=== PATIENT | male | born 1955 | race African-American/Black ===

== ENCOUNTER 2022-11-06 07:01 | Observation (INO) | payer OTHER ==
[~2022-11-06] VITALS: Ht 160 cm; Wt 81.7 kg
[~2022-11-06 07:01] MED LIST: AEC81 PO; ATOR40TA69 PO; CARV25TA PO; DIPH50CA37 PO; DULO60CA64 PO; HYDR25TA PO; ISOS30TA92 PO; NITR0.4T50 SL
[2022-11-06 07:39] LABS: BASOPHILS % (AUTO) 0.3 % (0.0-5.0); EOSINOPHILS % (AUTO) 4.4 % (0.0-8.0); HEMATOCRIT 41.6 % (42-54); LYMPHOCYTES % (AUTO) 36.8 % (21.0-51.0); MEAN CORPUSCULAR HEMOGLOBIN 30.9 pg (27.0-33.0); MEAN CORPUSCULAR HGB CONC 34.9 g/dL (32.0-36.0); MEAN CORPUSCULAR VOLUME 88.5 fL (79-99); MONOCYTES % (AUTO) 13.1 % (3.0-13.0); NEUTROPHILS % (AUTO) 45.1 % (40.0-77.0); PLATELET COUNT (AUTO) 189 K/uL (130-400); RED CELL DISTRIBUTION WIDTH 12.2 % (11.0-15.5); WHITE BLOOD COUNT (AUTO) 3.8 K/uL (4.8-10.8)
[2022-11-06] MEDS ORDERED: ALBUTEROL 0.083% 2.5 MG/3 ML INH IH ONE (08:00)
[2022-11-06] MEDS ORDERED: MORPHINE 4 MG SYG IVP ONE (08:00)
[2022-11-06] MEDS ORDERED: ENOXAPARIN SODIUM 80 MG/0.8 ML SQ ONE (08:00)
[2022-11-06] MEDS ORDERED: NITROGLYCERIN 1GM OINT 1 INCH/1GM TD ONE (08:00)
[2022-11-06 08:22] LABS: ALBUMIN 3.8 g/dL (3.5-5.0); CREATININE 1.2 mg/dL (0.5-1.5); POTASSIUM 4.1 mmol/L (3.5-5.1); TOTAL PROTEIN, SERUM 7.7 g/dL (6.0-8.3)
[2022-11-06 08:31] LABS: MAGNESIUM 1.5 mg/dL (1.80-2.40)
[2022-11-06] MEDS ORDERED: MAGNESIUM 2GM PREMIX 50ML 50 ML IV SCH (09:00)
[2022-11-06] MEDS ORDERED: HYDRALAZINE 25MG TABLET PO PRN (12:00)
[2022-11-06] MEDS ORDERED: DiphenhydrAMINE HCL 50 MG/ML VIAL IV PRN (12:00)
[2022-11-06] MEDS ORDERED: ARTIFICAL TEARS SOL 15 ML OP PRN (12:00)
[2022-11-06] MEDS ORDERED: POLYETHYLENE GLYCOL 3350 17 GM POWD.PACK PO PRN (12:00)
[2022-11-06] MEDS ORDERED: GUAIFENESIN SUGAR-FREE 100 MG/5 ML UDCUP PO PRN (12:00)
[2022-11-06] MEDS ORDERED: ALPRAZOLAM 0.5 MG TABLET PO PRN (12:00)
[2022-11-06] MEDS ORDERED: DOCUSATE SODIUM 100 MG CAP PO PRN (12:00)
[2022-11-06] MEDS ORDERED: LOPERAMIDE HCL 2 MG CAP PO PRN (12:00)
[2022-11-06] MEDS ORDERED: ACETAMINOPHEN 325 MG TAB PO PRN (12:00)
[2022-11-06] MEDS ORDERED: DIPHENHYDRAMINE HCL 25 MG CAPSULE PO PRN (12:00)
[2022-11-06] MEDS ORDERED: ALBUTEROL 0.083% 2.5 MG/3 ML INH IH PRN (12:00)
[2022-11-06] MEDS ORDERED: POTASSIUM CHLORIDE 20MEQ/100ML 100 ML IV PRN ×2 (12:30)
[2022-11-06] MEDS ORDERED: KCL 20 MEQ ERTAB PO PRN (12:30)
[2022-11-06] MEDS ORDERED: POTASSIUM CHLORIDE 10% ELIXIR 20 MEQ/15 ML UDCUP PO PRN (12:30)
[2022-11-06] MEDS ORDERED: MAGNESIUM 2GM PREMIX 50ML 50 ML IV PRN (12:30)
[2022-11-06] MEDS: MORPHINE 2 MG SYG IVP PRN ×3 (13:47→23:25)
[2022-11-06] MEDS: SOLU-MEDROL 40MG VIAL IVP SCH ×2 (15:24→20:49)
[2022-11-06] MEDS: CLOPIDOGREL 75MG TAB PO SCH (15:24)
[2022-11-06] MEDS ORDERED: IOHEXOL 350 MG/ML 100ML INFUS..BTL IV ONE (16:39)
[2022-11-06 18:24] VITALS: BP 128/79
[2022-11-06] MEDS: IPRATROPIUM/ALBUTEROL SULFATE 3 ML SOLUTION IH SCH (18:37)
[2022-11-06] MEDS: BUDESONIDE 0.5 MG/2 ML INH IH SCH (18:37)
[2022-11-06 19:00] VITALS: BP 145/87
[2022-11-06] MEDS: CARVEDILOL 25 MG TABLET PO SCH (20:28)
[2022-11-06] MEDS ORDERED: FAMOTIDINE 20MG VIAL IV SCH (21:00)
[2022-11-06] MEDS ORDERED: ATORVASTATIN 40 MG TABLET PO SCH (21:00)
[2022-11-06] MEDS ORDERED: ISOSORBIDE MONO 30MG SR TAB PO SCH (21:00)
[2022-11-06 23:00] VITALS: BP 110/81
[2022-11-06 23:34] LABS: AMPHET/METH SCREEN,URINE NEGATIVE (NEGATIVE); BARBITURATE SCREEN, URINE NEGATIVE (NEGATIVE); BENZODIAZEPINES SCREEN,URINE NEGATIVE (NEGATIVE); CANNABINOID SCREEN,URINE NEGATIVE (NEGATIVE); COCAINE SCREEN,URINE NEGATIVE (NEGATIVE); OPIATE SCREEN,URINE POSITIVE (NEGATIVE); PHENCYCLIDINE SCREEN,URINE NEGATIVE (NEGATIVE)
[2022-11-07] MEDS: IPRATROPIUM/ALBUTEROL SULFATE 3 ML SOLUTION IH SCH ×3 (01:43→11:14)
[2022-11-07] MEDS: SOLU-MEDROL 40MG VIAL IVP SCH ×3 (02:35→15:07)
[2022-11-07] MEDS: MORPHINE 2 MG SYG IVP PRN ×3 (04:28→13:43)
[2022-11-07 05:00] VITALS: BP 126/84
[2022-11-07 05:02] LABS: HEMATOCRIT 38.7 % (42-54); LYMPHOCYTES % (AUTO) 26.7 % (21.0-51.0); MEAN CORPUSCULAR HGB CONC 34.6 g/dL (32.0-36.0); MEAN CORPUSCULAR VOLUME 89.6 fL (79-99); MONOCYTES % (AUTO) 1.4 % (3.0-13.0); NEUTROPHILS % (AUTO) 71.4 % (40.0-77.0); PLATELET COUNT (AUTO) 198 K/uL (130-400); RED BLOOD CELL COUNT(AUTO) 4.32 MIL/uL (4.50-6.20); RED CELL DISTRIBUTION WIDTH 12.2 % (11.0-15.5); WHITE BLOOD COUNT (AUTO) 3.7 K/uL (4.8-10.8)
[2022-11-07 05:33] LABS: ALBUMIN 3.7 g/dL (3.5-5.0); CREATININE 1.5 mg/dL (0.5-1.5); MAGNESIUM 1.6 mg/dL (1.80-2.40); POTASSIUM 4.7 mmol/L (3.5-5.1); THYROID STIMULATING HORMONE 0.39 uIU/mL (0.36-3.74); TOTAL PROTEIN, SERUM 7.7 g/dL (6.0-8.3)
[2022-11-07] MEDS: BUDESONIDE 0.5 MG/2 ML INH IH SCH (07:00)
[2022-11-07 08:00] VITALS: BP 137/81
[2022-11-07] MEDS: CLOPIDOGREL 75MG TAB PO SCH (08:12)
[2022-11-07] MEDS: CARVEDILOL 25 MG TABLET PO SCH (08:12)
[2022-11-07] MEDS ORDERED: ASPIRIN 81 MG EC TAB PO SCH (09:00)
[2022-11-07] MEDS ORDERED: NON-FORMULARY MEDICATION 1 EACH (Duloxetine HCl 60 MG) PO SCH (09:00)
[2022-11-07] MEDS ORDERED: ENOXAPARIN SODIUM 40 MG/0.4 ML SYRINGE SQ SCH (09:00)
[2022-11-07] MEDS ORDERED: DULOXETINE HCL 30 MG CAP PO SCH (09:00)
[2022-11-07] MEDS ORDERED: ALBUTEROL 0.083% 2.5 MG/3 ML INH IH ONE ×2 (11:00→15:30)
[2022-11-07 11:50] VITALS: BP 139/83
[2022-11-07] MEDS ORDERED: CLOP-31 PO (13:50)
[2022-11-07] MEDS ORDERED: METO25TA3 PO (13:50)
[2022-11-07] MEDS ORDERED: DULO30CA2 PO (13:50)
[2022-11-07 16:00] VITALS: BP 142/88
[2022-11-08] MEDS ORDERED: METOPROLOL SUCCINATE 25 MG TAB.SR.24H PO SCH (09:00)
== END 2022-11-07 18:42 ==
LOC: EEVIPCON 07:01 → EDH 07:01 → EDHIP 11:53 → 4BH 17:59
PROVIDERS: ADMIT Internal Medicine; ATTEND Internal Medicine
DX: I25.110 Atherosclerotic heart disease of native coronary artery with unstable angina pectoris (principal); Z20.822 Contact with and (suspected) exposure to COVID-19; I10 Essential (primary) hypertension; E66.9 Obesity, unspecified; R73.9 Hyperglycemia, unspecified; I25.2 Old myocardial infarction; E78.00 Pure hypercholesterolemia, unspecified; E78.5 Hyperlipidemia, unspecified; Z86.73 Personal history of transient ischemic attack (TIA), and cerebral infarction without residual deficits; Z68.30 Body mass index [BMI] 30.0-30.9, adult; Z87.891 Personal history of nicotine dependence; Z95.5 Presence of coronary angioplasty implant and graft; Z79.899 Other long term (current) drug therapy
CPT/HCPCS: 94640 ×5; 96376 ×2; 96372 ×2; 96365; 96375; 99285; 83735 ×2; 84484 ×2; 80053 ×2; 83880; 80305; 85025 ×2; 87804 ×2; 82948 ×4; 36415 ×2; 87635; 71045; 71275; 93306; 93356; 93005 ×2; 94664; 94760 ×2; 96366; 84443; G0378 ×28; J3475 ×2; J3490; J2270 ×7; J2920 ×5; J1650 ×2; Q9967